=== PATIENT | male | born 1970 | race Two or more races ===

== ENCOUNTER 2018-12-06 03:34 | Emergency (ER) | payer MEDICAID ==
[~2018-12-06] VITALS: Ht 165.1 cm; Wt 77.1 kg
[2018-12-06 03:45] VITALS: BP 132/84
--- NOTE | 2018-12-06 03:45 | NUR ---
ED Nurse Note: Pt arrived ambulatory into ED for complaint of sores and itchiness on upper extremities. Pt states he was sleeping in a hotel and woke up with the rash. VSS. Pt showing no signs of acute distress. Will continue to monitor.
[2018-12-06] MEDS ORDERED: BACTRIM DS TAB1 EAC1 ORAL (04:15)
[2018-12-06] MEDS ORDERED: DIPHENHYDRAMINE25 M1 ORAL (04:15)
[2018-12-06] MEDS ORDERED: PREDNISONE20 MG ORAL (04:15)
[2018-12-06] MEDS ORDERED: CEPHALEXIN500 MG ORAL (04:15)
[2018-12-06 04:22] VITALS: BP 136/81
--- NOTE | 2018-12-06 04:22 | NUR ---
ED Nurse Note: Pt cleared by ERMD. Pt a/ox4, ambulatory with steady gait. VSS. Discharge paperwork and prescriptions provided. Pt verbalized understanding of all instructions. ID band removed.
--- NOTE | 2018-12-08 07:01 | Emergency Room Report ---
History of Present Illness General Chief Complaint: Skin Rash/Abscess Source: Patient Present Illness HPI 48-year-old male presents ED for evaluation. Walked in complaining of a rash to both arms which started 2 days ago. States he slept in a hotel. States that it is very itchy. Denies pain. Denies fevers or chills. Denies any known food or drug allergies. Denies any tongue swelling throat swelling or shortness of breath. No other aggravating relieving factors. Denies any other associated symptoms Allergies: Coded Allergies: No Known Allergies (Unverified , 12/06/18) Patient History Past Medical History: HTN, asthma Past Surgical History: none Pertinent Family History: none Social History: Denies: smoking, alcohol use, drug use Immunizations: UTD Reviewed Nursing Documentation: PMH: Agreed; PSxH: Agreed Nursing Documentation-PMH Past Medical History: No History, Except For Hx Hypertension: Yes Hx Asthma: Yes Review of Systems All Other Systems: negative except mentioned in HPI Physical Exam Vital Signs Date Time Temp Pulse Resp B/P (MAP) Pulse Ox O2 Delivery O2 Flow Rate FiO2 12/06/18 03:44 97.5 82 20 132/84 (100) 99 Room Air Sp02 EP Interpretation: reviewed, normal General Appearance: no apparent distress, alert, GCS 15, non-toxic Head: normocephalic Eyes: bilateral eye normal inspection, bilateral eye PERRL ENT: normal ENT inspection Neck: normal inspection Respiratory: chest non-tender, lungs clear, normal breath sounds, speaking full sentences Cardiovascular #1: regular rate, rhythm, no edema Gastrointestinal: normal inspection Rectal: deferred Genitourinary: no CVA tenderness Musculoskeletal: normal inspection Neurologic: alert, oriented x3, responsive, motor strength/tone normal, sensory intact, speech normal Psychiatric: judgement/insight normal, memory normal, mood/affect normal, no suicidal/homicidal ideation Skin: rash - papular erythematous rash to bilateral arms. one site of swelling. no fluctuance or discharge Lymphatic: normal inspection Medical Decision Making Diagnostic Impression: Primary Impression: Insect bites Qualified Codes: S40.869A - Insect bite (nonvenomous) of unspecified upper arm , initial encounter; W57.XXXA - Bitten or stung by nonvenomous insect and other nonvenomous arthropods, initial encounter ER Course Hospital Course 48 yo M presents with rash to upper extermities Differential diagnoses include: Cellulitis, dermatitis, insect bite, abscess Clinical course Patient placed on stretcher. After initial history, physical exam reveals a male in no acute distress. On exam there is a erythematous rash noted to bilateral upper extremities. There is one area of swelling induration to the left upper extremity. No shortness or discharge. discussed findings with patient. Will discharge with antibiotics, prednisone, Benadryl. Isolation from source. Safe for discharge with close outpatient follow-up. Will provide referrals Diagnosis - insect bite stable and discharged to home with prescription for prednisone, Benadryl, Keflex , bactrim. Instructed to followup with PMD. Instructed return to ED if symptoms recur or worsen Last Vital Signs Date Time Temp Pulse Resp B/P (MAP) Pulse Ox O2 Delivery O2 Flow Rate FiO2 12/06/18 04:22 98.0 76 16 136/81 99 Room Air Status: improved Disposition: HOME, SELF-CARE Condition: Stable Scripts Diphenhydramine Hcl* (DIPHENHYDRAMINE HCL*) 25 Mg Capsule 25 MG ORAL Q6H PRN for Itching, #30 CAP 0 Refills Prov: Lucio Amin MD 12/06/18 Prednisone* (PREDNISONE*) 20 Mg Tablet 40 MG ORAL DAILY, #10 TAB Prov: Lucio Amin MD 12/06/18 Trimethoprim/Sulfamethoxazole 160/800* (BACTRIM DS TABLET*) 1 Each Tablet 1 TAB ORAL Q12H, #14 TAB 0 Refills Prov: Lucio Amin MD 12/06/18 Cephalexin* (KEFLEX*) 500 Mg Capsule 500 MG ORAL EVERY 6 HOURS for 7 Days, CAP Prov: Lucio Amin MD 12/06/18 Referrals: NOT CHOSEN IPA/,REFERRING [facility] Patient Instructions: Insect Bite, [id number]-[id number] Lucio Amin MD Dec 08, 2018 07:01
== END 2018-12-06 04:22 | disposition home or self-care (01) ==
LOC: EMR 04:22
DX: S40.862A Insect bite (nonvenomous) of left upper arm, initial encounter (principal); S40.861A Insect bite (nonvenomous) of right upper arm, initial encounter; I10 Essential (primary) hypertension; J45.909 Unspecified asthma, uncomplicated; W57.XXXA Bitten or stung by nonvenomous insect and other nonvenomous arthropods, initial encounter; Y93.89 Activity, other specified; Y92.59 Other trade areas as the place of occurrence of the external cause
CPT/HCPCS: 99282